=== PATIENT | female | born 2000 | race Two or more races ===

== ENCOUNTER 2018-04-16 23:27 | Emergency (ER) | payer SELFPAY ==
[~2018-04-16] VITALS: Ht 152.4 cm; Wt 69.0 kg
[2018-04-17 03:51] LABS: CLARITY URINE CLEAR (CLEAR); COLOR URINE YELLOW (YELLOW); KETONES URINE NEGATIVE (NEGATIVE); LEUKOCYTE ESTERASE URINE 1+ (NEGATIVE); NITRITE URINE POSITIVE (NEGATIVE); OCCULT BLOOD URINE NEGATIVE (NEGATIVE); PROTEIN URINE NEGATIVE (NEGATIVE); SPECIFIC GRAVITY URINE 1.025 (1.005-1.030)
[2018-04-17] MEDS ORDERED: IBUPROFEN 600MG TABLET PO ONE (04:45)
[2018-04-17 05:33] VITALS: BP 107/67
== END 2018-04-17 05:40 | disposition home or self-care (01) ==
LOC: ER 23:29
DX: N76.0 Acute vaginitis (principal)
CPT/HCPCS: 81003; 81025; 87077; 87086; 87186; 99284